=== PATIENT | male | born 1955 | race African-American/Black ===

== ENCOUNTER 2016-10-20 09:12 | Emergency (ER) | payer BC ==
[2016-10-20] MEDS ORDERED: NORMAL SALINE 1000 ML 500 ML IV ONE (09:41)
[2016-10-20] MEDS ORDERED: VALSARTAN 40 MG TABLET PO ONE (09:49)
[2016-10-20] MEDS ORDERED: AMIODARONE HCL 200 MG TABLET PO ONE (09:49)
[2016-10-20] MEDS ORDERED: FAMOTIDINE INJ/PF 20 MG/2 ML SDV IV ONE (09:50)
[2016-10-20 10:07] LABS: ABSOLUTE BASOPHILS # (AUTO) 0.2 10^3/uL (0.0-0.2); ABSOLUTE EOSINOPHILS # (AUTO) 0.1 10^3/uL (0.0-0.6); ABSOLUTE LYMPHOCYTES (AUTO) 1.1 10^3/uL (0.5-4.7); ABSOLUTE MONOCYTES (AUTO) 0.7 10^3/uL (0.1-1.4); ABSOLUTE NEUT (AUTO) 5.1 10^3/uL (1.7-8.2); BASOPHILS % (AUTO) 2.3 % (0-2); EOSINOPHILS % (AUTO) 1.2 % (0-6); HEMATOCRIT 32.6 % (37.9-51.0); HEMOGLOBIN 9.7 g/dL (13.5-17.0); HGB HCT DIFFERENCE -3.5; MEAN CORPUSCULAR HEMOGLOBIN 23.4 pg (27.0-33.4); MEAN CORPUSCULAR HGB CONC 29.8 g/dL (32.0-36.0); MEAN CORPUSCULAR VOLUME 79 fl (80-97); MONOCYTES % (AUTO) 9.9 % (3-13); RED BLOOD COUNT 4.15 10^6/uL (4.35-5.55); RED CELL DISTRIBUTION WIDTH 20.1 % (11.5-14.0); SEGMENTED NEUTROPHILS % (AUTO) 71.6 % (42-78); WHITE BLOOD COUNT 7.2 10^3/uL (4.0-10.5)
--- NOTE | 2016-10-20 10:21 | ER Document Report ---
ED General - General Chief Complaint: Abdominal Pain Stated Complaint: STOMACH PAIN TRAVEL OUTSIDE OF THE [place] IN LAST 30 DAYS: No - HPI Patient complains to provider of: abdominal pain Notes: Patient states having abdominal pain epigastric midabdomen ongoing since last night. Patient states prior that was constipated take a laxative and has had multiple bowel movements since that time. Patient was recent seen here in ER and transferred to tertiary care facility for further evaluation of atrial fibrillation with RVR and troponin leak. Patient was placed on multiple medications including amiodarone Lon Eliqis. Patient states he has been compliant with his medications except for the Lon. Patient states he cannot afford this. Patient states he did not take his medications prior to arrival. - Related Data Allergies/Adverse Reactions: No Known Allergies Allergy (Verified 10/20/16 09:21) Past Medical History - Social History Smoking Status: Current Every Day Smoker Chew tobacco use (# tins/day): No Frequency of alcohol use: Occasional Drug Abuse: None Family History: Reviewed & Not Pertinent Patient has suicidal ideation: No Patient has homicidal ideation: No - Past Medical History Cardiac Medical History: Reports: Hx Hypercholesterolemia, Hx Hypertension Past Surgical History: Reports: Hx Cardiac Catheterization - stentx1, Hx Orthopedic Surgery - right hand, knee, ankle Review of Systems - Review of Systems Constitutional: No symptoms reported EENT: No symptoms reported Cardiovascular: No symptoms reported Respiratory: No symptoms reported Gastrointestinal: Abdominal pain. denies: Diarrhea, Nausea, Vomiting Genitourinary: No symptoms reported Male Genitourinary: No symptoms reported Musculoskeletal: No symptoms reported Skin: No symptoms reported Hematologic/Lymphatic: No symptoms reported Neurological/Psychological: No symptoms reported -: Yes All other systems reviewed and negative Physical Exam - Vital signs Vitals: Temp Pulse Resp BP Pulse Ox 97.3 F 90 19 209/108 H 99 10/20/16 09:22 10/20/16 09:22 10/20/16 09:22 10/20/16 09:22 10/20/16 09:22 Interpretation: Hypertensive - General General appearance: Appears well, Alert - HEENT Head: Normocephalic, Atraumatic Eyes: Normal Pupils: PERRL - Respiratory Respiratory status: No respiratory distress Chest status: Nontender Breath sounds: Normal Chest palpation: Normal - Cardiovascular Rhythm: Regular Heart sounds: Normal auscultation Murmur: No - Abdominal Inspection: Normal Distension: No distension Bowel sounds: Normal Tenderness: Nontender Organomegaly: No organomegaly - Back Back: Normal, Nontender - Extremities General upper extremity: Normal inspection, Nontender, Normal color, Normal ROM , Normal temperature General lower extremity: Normal inspection, Nontender, Normal color, Normal ROM , Normal temperature, Normal weight bearing. No: Geovanna's sign - Neurological Neuro grossly intact: Yes Cognition: Normal Orientation: AAOx4 [place] Coma Scale Eye Opening: Spontaneous [place] Coma Scale Verbal: Oriented [place] Coma Scale Motor: Obeys Commands [place] Coma Scale Total: 15 Speech: Normal Motor strength normal: LUE, RUE, LLE, RLE Sensory: Normal - Psychological Associated symptoms: Normal affect, Normal mood - Skin Skin Temperature: Warm Skin Moisture: Dry Skin Color: Normal Course - Re-evaluation Re-evalutation: 10/20/16 13:18 Reevaluation the patient patient now admits he also did not take lisinopril his carvedilol. These medications were given to the patient. Patient's acute abdominal series shows moderate stool retention radiologist states possible development of a possible ileus left upper quadrant. Patient is nontender left upper quadrant. What was all due to constipation. Patient has no nausea no vomiting no signs of obstruction. Patient has normal bowel sounds. Patient's blood pressure after receiving all of his medications did trend down. Patient will be discharged home follow-up with primary care physician - Vital Signs Vital signs: Temp Pulse Resp BP Pulse Ox 97.3 F 91 15 184/117 H 100 10/20/16 09:30 10/20/16 09:30 10/20/16 12:20 10/20/16 12:20 10/20/16 12:20 - Laboratory Result Diagrams: 10/20/16 09:45 10/20/16 09:45 Laboratory results interpreted by me: 10/20/16 10/20/16 09:45 09:45 RBC 4.15 L Hgb 9.7 L Hct 32.6 L MCV 79 L MCH 23.4 L MCHC 29.8 L RDW 20.1 H Basophils % 2.3 H Glucose 115 H Alkaline Phosphatase 156 H Discharge - Discharge Clinical Impression: Hypertension Qualifiers: Hypertension type: unspecified secondary hypertension Qualified Code(s): I15.9 - Secondary hypertension, unspecified Constipation Qualifiers: Constipation type: unspecified constipation type Qualified Code(s): K59.00 - Constipation, unspecified Condition: Good Disposition: HOME, SELF-CARE Instructions: Abdominal Pain ([facility]), Constipation ([facility]) Additional Instructions: Please continue with your max citrate or your laxatives at home. I will give you nausea medication. Return to the ER if your abdominal pain worsens. Please continue to take your antihypertensive medications as prescribed. Prescriptions: Ondansetron [Zofran Odt 4 mg Tablet] 1 - 2 tab PO Q4H PRN #20 tab.rapdis PRN Reason: For Nausea/Vomiting Forms: Elevated Blood Pressure
[2016-10-20 10:24] LABS: ALANINE AMINOTRANSFERASE 54 U/L (21-72); ALBUMIN 4.5 g/dL (3.5-5.0); ALKALINE PHOSPHATASE 156 U/L (38-126); ANION GAP 11 (5-19); ASPARTATE AMINO TRANSFERASE 30 U/L (17-59); BILIRUBIN,TOTAL 0.9 mg/dL (0.2-1.3); BLOOD UREA NITROGEN 16 mg/dL (7-20); CALCIUM 9.6 mg/dL (8.4-10.2); CARBON DIOXIDE 29 mmol/L (22-30); CHLORIDE 105 mmol/L (98-107); CREATININE RESULT 0.89 mg/dL (0.52-1.25); GLUCOSE 115 mg/dL (75-110); LIPASE 27.8 U/L (23-300); POTASSIUM 4.9 mmol/L (3.6-5.0); SODIUM 144.9 mmol/L (137-145); TOTAL PROTEIN 6.8 g/dL (6.3-8.2)
[2016-10-20] MEDS ORDERED: ONDANSETRON ODT 4 MG TAB (6 TAB/DSPK) PO PRN (12:34)
[2016-10-20 12:45] VITALS: BP 184/117
--- NOTE | 2016-10-20 21:30 | EKG REPORT ---
SEVERITY:- ABNORMAL ECG - SINUS RHYTHM BORDERLINE INFERIOR Q WAVES PROLONGED QT INTERVAL LVH ST-T WAVE CHANGES SEC TO [facility]H : Confirmed by: Michael Ochoa 20-Oct-2016 21:30:01
== END 2016-10-20 12:54 | disposition home or self-care (01) ==
LOC: ER 09:12
DX: K59.00 Constipation, unspecified (principal); R10.13 Epigastric pain; I48.91 Unspecified atrial fibrillation; I10 Essential (primary) hypertension; F17.200 Nicotine dependence, unspecified, uncomplicated; Z79.01 Long term (current) use of anticoagulants; Z79.899 Other long term (current) drug therapy; Z59.9 Problem related to housing and economic circumstances, unspecified; Z91.14 Patient's other noncompliance with medication regimen; Z98.61 Coronary angioplasty status
CPT/HCPCS: 93005; 99284; 96361; 96374; 36415; 83605; 83690; 85025; 80053; 74022; 93010; J7030; S0028